=== PATIENT | male | born 1995 | race Caucasian/White ===

== ENCOUNTER → 2024-05-10 | Outpatient (CLI) | payer OTHER ==
--- NOTE | 2024-05-11 05:59 | MR ---
EXAMINATION TYPE: MR knee LT wo con DATE OF EXAM: 05/10/2024 COMPARISON: NONE HISTORY: Left knee pain for about 1.5 years due to pivoting on left knee during football and knee pop ped. TECHNIQUE: Multiplanar, multisequence images of the knee is performed without IV contrast. FINDINGS: MEDIAL MENISCUS: Anterior and posterior horns are intact without tear. LATERAL MENISCUS: Anterior and posterior horns are intact without tear. CRUCIATE LIGAMENTS: The posterior cruciate ligament is intact and unremarkable. Anterior cruciate lig ament shows heterogeneous increased signal and partial tearing at its proximal insertion from the dis dagoberto femur. COLLATERAL LIGAMENTS: The medial collateral ligament and lateral collateral ligament complex are inta ct and unremarkable. EXTENSOR MECHANISM: Visualized quadriceps and patellar tendons are intact. EFFUSION: Small size suprapatellar joint effusion. POPLITEAL CYST: No popliteal/tejeda cyst. TRICOMPARTMENT SPACES: Mild tricompartment joint space loss and spurring. CARTILAGE: Tricompartmental articular cartilage is preserved. BONE MARROW SIGNAL: Some heterogeneity is present. No significant focal increased T2 signal or osseou s edema. OTHER: No additional significant abnormality is appreciated. IMPRESSION: 1. Partial tearing/chronic sprain injury of the ACL. No full-thickness tear. 2. Mild tricompartment degenerative changes. 3. Small size suprapatellar joint effusion. [facility], , 05/11/2024 5:56 AM
== END | disposition home or self-care (01) ==
LOC: RADMRIMAIN 21:45
PROVIDERS: ATTEND Family Medicine
DX: M23.307 Other meniscus derangements, unspecified meniscus, left knee (principal); M17.12 Unilateral primary osteoarthritis, left knee; M25.462 Effusion, left knee